=== PATIENT | male | born 1990 | race Caucasian/White ===

== ENCOUNTER 2020-05-20 13:48 | Emergency (ER) | payer MEDICAID, OTHER ==
[~2020-05-20] VITALS: Ht 190.5 cm; Wt 145.4 kg
[2020-05-20] MEDS ORDERED: morphine 4 MG/ML inj SYRINge IV ONE ×2 (14:20→15:00)
[2020-05-20] MEDS ORDERED: normal saline 1000ml 1,000 ML IV ONE (14:20)
[2020-05-20] MEDS ORDERED: ondansetron/PF 4mg/2ml inj IV ONE ×2 (14:20→15:00)
[2020-05-20] MEDS ORDERED: fentaNYL/PF 50MCG/1 ML 2ML syringe IV ONE ×2 (15:15→17:10)
[2020-05-20] MEDS ORDERED: ketorolac tromethamine 15mg/ml inj. IV ONE (15:55)
--- NOTE | 2020-05-20 16:18 | NUR ---
girlfriend at bedside pt pain is 5/10 but still goes up to 8/10 with movement, will continue to monitor
--- NOTE | 2020-05-20 16:38 | NUR ---
pt is in alot of pain asked pa for more pain meds, will continue to monitor, vs stable
[2020-05-20] MEDS ORDERED: HYDROmorphone 1 mg/ml syringe IV ONE ×2 (16:40→18:15)
[2020-05-20] MEDS ORDERED: HYDR-3972 PO ×3 (18:02→18:11)
[2020-05-20 18:36] VITALS: BP 128/54
== END 2020-05-20 18:38 | disposition home or self-care (01) ==
LOC: ER 13:49
DX: S42.491A Other displaced fracture of lower end of right humerus, initial encounter for closed fracture (principal); Z79.899 Other long term (current) drug therapy; X50.1XXA Overexertion from prolonged static or awkward postures, initial encounter; Y93.72 Activity, wrestling; Y92.89 Other specified places as the place of occurrence of the external cause; Y99.8 Other external cause status
CPT/HCPCS: 29105; 73060; 96361; 96374; 96375; 96376; 99285; J1170; J1885; J2270; J2405; J3010; J7030; 94760